=== PATIENT | male | born 1990 | race African-American/Black ===

== ENCOUNTER 2018-02-24 18:17 | Emergency (ER) | payer SELFPAY ==
[2018-02-24 18:23] VITALS: BP 149/81; PULSE 76; RESP 12; TEMP 36.7; O2SAT 96
--- NOTE | 2018-02-24 19:47 | DI.RAD_ITS ---
SYMPTOM/DIAGNOSIS: PAIN RIGHT HAND: Three views. Comparison is made with 12/16/14. No bone or joint abnormality is identified. Soft tissues are grossly unremarkable. Incidental note is made of a bone island in the right third metacarpal. IMPRESSION: No acute abnormality.
--- NOTE | 2018-02-24 19:51 | ED.GENADUL_ITS ---
Discharge Plan Disposition Patient Disposition: HOME Condition: Stable Discharge Details Chief Complaint: Orthopedic Clinical Impression: Injury of flexor tendon of right hand, [place] finger Primary Care Provider: Stefano Herrera ED Provider: Omar Traore Home Meds and New Rx's Prescriptions: No Action ascorbic acid (vitamin C) [Vitamin C] 500 MG tablet 500 mg PO DAILY RF: 0 Discharge Instructions Instructions: Finger Sprain (ED) Additional Instructions: Please keep splint on at all times and follow-up with orthopedist for reassessment. You may take [id number] acetaminophen or Motrin as needed for pain control. Referrals: Waldemar Jacob MD [ [facility] STAFF PHYSICIAN] - (Please call the orthopedic office tomorrow for arrangement of follow-up appointment) Discharge Data Discharge Date/Time-TO BE ENTERED AT DEPARTURE: 02/24/18 20:10 Medical Decision Making Patient presenting to the emergency department for chief complaint of right ring finger pain. Patient states that he was playing flag football approximately 5 weeks ago and pulled it on another person's shorts. Initially he just thought he mildly dislocated his finger but it is continued to hurt and be uncomfortable especially over the last week. Patient denies any new injury or trauma. Physical exam is positive for tenderness to the right ring finger along with the palmar aspect of the metacarpal and absent flexion of the DIP. There is concern for occult fracture or tendon injury specifically jersey finger. Radiological imaging was ordered for rule out of fracture. Patient denies need for any pain medication Initial review of radiological imaging was negative. Given that injury occurred 5 weeks ago and concern for flexor tendon rupture is present I did speak with Dr. Jacob who just stated to have the patient call the office for arrangement of follow-up appointment. Patient was placed in a foam metal splint and finger in slight flexion patient encouraged to keep finger in flexed position and splint on at all times until cleared by orthopedist. After discussion of diagnosis and plan of care patient has no further needs, questions , or concerns and states clear understanding to return to the emergency department for any worsening symptoms. HPI General Mode of arrival: ambulatory . Date/Time Provider Initiated Documentation: 02/24/18 18:49 . Limitations to Documentation: no limitations . Information obtained by: patient and RN notes reviewed . History of Present Illness described as moderate, with intensity rated at 7. Quality is described as aching, and is localized to the right and upper extremity. Patient started experiencing this week(s) (5) and it has been intermittent. No relieving factors improve symptom(s), No exacerbating factors reported and Movement worsens symptoms . Patient notes no other symptoms.. Patient did receive the following treatments prior to arrival, none Related Data Home Medications Medication Instructions Recorded Confirmed ascorbic acid (vitamin C) [Vitamin 500 mg PO DAILY 05/13/15 02/24/18 C] Allergies Allergy/AdvReac Type Severity Reaction Status Date / Time No Known Allergies Allergy Unverified 02/24/18 18:29 General Stated Complaint: Orthopedic CHRIS: 4 Review of Systems Constitutional Denies frequent falls Cardiovascular Denies syncope Musculoskeletal Reports as per HPI, Denies numbness and Denies tingling Neurologic Denies syncope, Denies frequent falls, Denies numbness and Denies tingling PFSH Social History Smoking/Tobacco Use Status: Former Tobacco Use Exam Const General: cooperative, healthy appearing and no acute distress Orientation: alert, awake and oriented x3 Resp Effort & Inspection: normal respiratory effort and able to speak in complete sentences Cardio Rate: regular rate Rhythm: regular rhythm Extrem General: normal exam except as noted Right upper extremity: hand Details: normal capillary refill, neuromotor exam normal, neurosensory exam normal, tendon exam abnormal Location: function absent (Movement of the right ring finger distal flexion) and tenderness over the sheath (Right ring finger), tenderness Location: of the palm and abnormal ROM of finger Details: unable to flex Location: of the 4th digit Course Vital Signs Temperature 36.7 C 02/24/18 18:23 Pulse 76 02/24/18 18:23 Respiratory Rate 12 02/24/18 18:23 Blood Pressure 149/81 H 02/24/18 18:23 Pulse Oximetry 96 02/24/18 18:23 Temperature 36.7 C 02/24/18 18:23 Temperature Source Skin 02/24/18 18:23 Pulse 76 02/24/18 18:23 Respiratory Rate 12 02/24/18 18:23 Respiratory Effort 02/24/18 18:29 Blood Pressure 149/81 H 02/24/18 18:23 Blood Pressure Position Sitting 02/24/18 18:23 Pulse Oximetry 96 02/24/18 18:23 Oxygen Delivery Method Room Air 02/24/18 18:23 Oxygen Flow Rate 0 02/24/18 18:23 Pain Level 6 02/24/18 18:23
--- NOTE | 2018-02-24 20:21 | DI.VRAD_ITS ---
EXAM: XR Right Hand Complete, 3 or more Views EXAM DATE/TIME: 02/24/2018 7:26 PM CLINICAL HISTORY: 27 years old, male; Pain; Finger(s); Right; Patient HX: 4th metacarpal pain TECHNIQUE: XR Right hand 3 or more views. COMPARISON: CR RIGHT WRIST COMPLETE 12/16/2014 10:51 AM FINDINGS: Bones/joints: A bone island is seen in the third metacarpal head. No fracture or subluxation. Soft tissues: Normal. IMPRESSION: No acute osseous findings. Dictated and Authenticated by: Zeferino Elaine MD. Ordering:BRUNO RAMESH MD
== END 2018-02-24 20:10 | disposition home or self-care (01) ==
PROVIDERS: Emergency Provider Nurse Practitioner Family; PCP Family Medicine
DX: S66.114A Strain of flexor muscle, fascia and tendon of right ring finger at wrist and hand level, initial encounter (principal); S63.634A Sprain of interphalangeal joint of right ring finger, initial encounter; X50.0XXA Overexertion from strenuous movement or load, initial encounter; Y93.62 Activity, american flag or touch football
CPT/HCPCS: 29130; 99283; 73130

== ENCOUNTER 2018-05-22 07:45 | Outpatient (CLI) | payer OTHER, SELFPAY ==
--- NOTE | 2018-05-22 13:18 | W.PREOPHP ---
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 Details of surgery were discussed with patient as well as risks and pertinent anatomy. All questions were answered. Qualifiers: Encounter type: subsequent encounter Qualified Code(s): S66.811D - Strain of other specified muscles, fascia and tendons at wrist and hand level, right hand, subsequent encounter History of Present Illness Chief Complaint: Right ring finger injury Narrative: Cindy is a 27-year-old male who comes in complaining of an injury that he sustained to his right ring finger while he was playing football back in December. He said he was playing flag football when he was reaching for a flag he got his right ring finger caught in the opponents pocket causing a popping sensation in his right ring finger. He says that the popping sensation also was associated with pain into his palm and into his wrist, and some tingling in his right ring finger. Tingling ended up subsiding, however he noticed he was unable to flex his finger fully. He went to the emergency room in February, and that also when he saw Dr. Jacob, and he was diagnosed with a ruptured FDP tendon of the right ring finger. X-rays taken were unremarkable, and showed no acute bony abnormalities. 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 Dr. Jacob suggests surgical intervention with repair of the FDP tendon, and the patient is anxious to proceed. Pertinent Surgical Information Patient denies history of hypertension, CVA, [place], angina, asthma, COPD, renal or liver disorders, hepatitis, bleeding disorders, diabetes, immune or thyroid disorders. No complications from anesthesia. Review of Systems Constitutional Denies fever(s) ENT Denies dizziness and Denies sore throat Cardiovascular Denies chest pain, Denies palpitations and Denies dyspnea Respiratory Denies dyspnea Gastrointestinal Denies abdominal pain, Denies melena, Denies hematochezia, Denies diarrhea, Denies nausea and Denies vomiting Genitourinary Denies hematuria and Denies dysuria Neurologic Denies dizziness Endocrine Denies palpitations [facility] Surgical History History of torsion of testis (Chronic) Social History Smoking/Tobacco Use Status: Current-Occasional Meds Home Medications Medication Instructions Recorded Confirmed Type ascorbic [id number] 1 ea PO PRN PRN 05/22/18 05/22/18 History [Emergen-C] Allergies Allergy/AdvReac Type Severity Reaction Status Date / Time No Known Allergies Allergy Verified 03/05/18 10:46 Exam [facility] Head: normocephalic and atraumatic General nose exam: no nasal discharge Throat: uvula midline and no uvular edema Other: soft palate rises symmetrically, no erythema Eyes Conjunctivae: conjunctivae normal Sclera: sclerae normal Pupils: PERRL Resp Effort & Inspection: normal respiratory effort Auscultation: clear to auscultation bilaterally and no wheezes Cardio Rate: regular rate Rhythm: regular rhythm Heart Sounds: S1 normal, S2 normal and no murmurs
--- NOTE | 2018-05-22 13:27 | HPE_ITS ---
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 Details of surgery were discussed with patient as well as risks and pertinent anatomy. All questions were answered. Qualifiers: Encounter type: subsequent encounter Qualified Code(s): S66.811D - Strain of other specified muscles, fascia and tendons at wrist and hand level, right hand, subsequent encounter History of Present Illness Chief Complaint: Right ring finger injury Narrative: Cindy is a 27-year-old male who comes in complaining of an injury that he sustained to his right ring finger while he was playing football back in December. He said he was playing flag football when he was reaching for a flag he got his right ring finger caught in the opponents pocket causing a popping sensation in his right ring finger. He says that the popping sensation also was associated with pain into his palm and into his wrist, and some tingling in his right ring finger. Tingling ended up subsiding, however he noticed he was unable to flex his finger fully. He went to the emergency room in February, and that also when he saw Dr. Jacob, and he was diagnosed with a ruptured FDP tendon of the right ring finger. X-rays taken were unremarkable, and showed no acute bony abnormalities. 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 Dr. Jacob suggests surgical intervention with repair of the FDP tendon, and the patient is anxious to proceed. Pertinent Surgical Information Patient denies history of hypertension, CVA, [place], angina, asthma, COPD, renal or liver disorders, hepatitis, bleeding disorders, diabetes, immune or thyroid disorders. No complications from anesthesia. Review of Systems Constitutional Denies fever(s) ENT Denies dizziness and Denies sore throat Cardiovascular Denies chest pain, Denies palpitations and Denies dyspnea Respiratory Denies dyspnea Gastrointestinal Denies abdominal pain, Denies melena, Denies hematochezia, Denies diarrhea, Denies nausea and Denies vomiting Genitourinary Denies hematuria and Denies dysuria Neurologic Denies dizziness Endocrine Denies palpitations [facility] Surgical History History of torsion of testis (Chronic) Social History Smoking/Tobacco Use Status: Current-Occasional Meds Home Medications Medication Instructions Recorded Confirmed Type ascorbic [id number] 1 ea PO PRN PRN 05/22/18 05/22/18 History [Emergen-C] Allergies Allergy/AdvReac Type Severity Reaction Status Date / Time No Known Allergies Allergy Verified 03/05/18 10:46 Exam [facility] Head: normocephalic and atraumatic General nose exam: no nasal discharge Throat: uvula midline and no uvular edema Other: soft palate rises symmetrically, no erythema Eyes Conjunctivae: conjunctivae normal Sclera: sclerae normal Pupils: PERRL Resp Effort & Inspection: normal respiratory effort Auscultation: clear to auscultation bilaterally and no wheezes Cardio Rate: regular rate Rhythm: regular rhythm Heart Sounds: S1 normal, S2 normal and no murmurs
== END 2018-05-22 08:05 ==
PROVIDERS: PCP Family Medicine; Visit Provider Orthopaedic Surgery
DX: S66.811A Strain of other specified muscles, fascia and tendons at wrist and hand level, right hand, initial encounter (principal); Z01.818 Encounter for other preprocedural examination
CPT/HCPCS: NC

== ENCOUNTER 2018-05-26 09:50 | Day surgery (SDC) | payer OTHER, MEDICAID, SELFPAY ==
[2018-05-26] VITALS (7 sets, daily range): BP systolic 143–183; BP diastolic 77–113; PULSE 62–86; RESP 11–19; TEMP 35.7–36.5; O2SAT 97–100
[2018-05-26] MEDS: Lactated Ringers 1,000 ML 80 ML IV (10:51)
--- NOTE | 2018-05-26 13:14 | PDOC.DSDIS_ITS ---
Discharge Plan Disposition Patient Disposition: HOME Condition: Good Discharge Details Reason For Visit: rupture flexor tendon R ring finger Attending Provider: Waldemar Jacob Primary Care Provider: Stefano Herrera Home Meds and New Rx's Prescriptions: New hydrocodone-acetaminophen 5-325 mg tablet 1 tab PO Q6H PRN (Reason: pain) Qty: 10 RF: 0 Continued Emergen-C 1,000 mg Powder Effervescent In Packet 1 ea PO PRN PRNRF: 0 Discharge Instructions Additional Instructions: Elevate R hand above heart level as much as possible for next 48 hours. Keep dressings and splint dry and intact until return. Return to 's office in one week for dressing change and wound check. Take hydrocodone, if needed, for breakthru pain. Otherwise take tylenol or ibuprofen for mild pain. Referrals: Waldemar Jacob MD [ [facility] STAFF PHYSICIAN] - (f/u in one week.) Equipment/Supplies: Splint Activity:: Activity as Tolerated Remove Dressings/Wound Care:: Do Not Remove Shower/Bathe:: Cover Diet:: As Tolerated Discharge Orders Discharge Orders: Discharge Order (Routine); Ordered 05/26/18 Ordered By: Waldemar Jacob DS: Diagnosis Discharge Diagnosis (1) Rupture of flexor tendon of right hand: Status: Chronic
[2018-05-26] MEDS: HYDROmorphone 2 MG/ML VIAL IVP (13:58)
[2018-05-26] MEDS: HYDROcodone 5/Acetaminophen 325 TAB PO (14:50)
--- NOTE | 2018-05-26 16:12 | ROE_ITS ---
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 PROCEDURE: Exploration of flexor tendons right ring finger. Application of dorsal splint to the right wrist. ANESTHESIA: General. SURGEON: Waldemar Jacob M.D. MECHANIC MARINE ENGINE: Stevenson Kiser FINDINGS: Patient had a flexor digitorum profundus that was retracted in the palm to the level of the distal edge of the volar carpal ligament. This tendon could not be mobilized sufficiently to any kind of repair. I simply sutured the profundus to the sublimis tendons of the ring finger to help with strength. I also manipulated the PIP joint of the ring finger to gain full passive extension. INDICATIONS: This is a 27-year-old white male who was playing football with friends in late December when he felt a pop in his right ring finger. He said he did not experience much pain at that time. He did not seek medical attention until six weeks had elapsed. At that time he came to the Emergency Room because of an inability to really extend his DIP joint very well and he had developed a flexion contracture at the PIP joint of the ring finger. He was then referred to me for evaluation. I made the diagnosis of a rupture of the flexor digitorum profundus tendon from its attachment to the base of the distal phalanx of the ring finger. At that time I explained to the patient that the tendon had most likely retracted a distance proximally and may or may not be mobilized at that time in order to provide a sufficient repair. The patient was lost to follow-up and didn't return until April for evaluation again. I explained to the patient at that time that I was not sure that the tendon could be mobilized sufficiently for repair due to the time that had elapsed since the injury. I nevertheless felt that exploration should be considered so that if the tendon was not retracted into the palm, then it could be mobilized enough for repair. The patient wished to have me to proceed to attempt at repair, if possible. The risks and complications of the procedure were explained to the patient in detail preoperatively. PROCEDURE: The patient was taken to the Operating Room on 05/26/18. He was placed supine on the operating table and a general anesthetic was administered. The right hand was then prepped and draped free in the usual sterile fashion. Under proximal tourniquet control and using the lead hand splint, a Bertin-type incision was made beginning of the palmar aspect of the distal phalanx of the ring finger and carried in a zigzag fashion across the proximal and middle flexion creases. I opened the flexor sheath, did not find the profundus tendon distal to the sublimis tendon insertion. I then carried the Bertin incision further distally and I was not able to find the flexor profundus between the middle and proximal skin creases of the finger. I then carried the Bertin incision zigzag fashion distally to the distal edge of the volar carpal ligament. The proximal kapil of the flexor sheath was released. There was only one tendon present and that was the sublimis. I was able to locate the stump of the profundus tendon at the distal edge of the volar carpal ligament. There was some of the tissue that was rolled up into a small ball or stump of fibrous tissue. I attempted to mobilize the profundus tendon and could only gain enough travel maybe to get to the distal flexion crease of the palm. It was obvious that I could not gain enough travel or length to pass the tendon through the sheath back to its insertion. I did not feel that I should go further proximally in an attempt to mobilize the tendon. This would need a tendon graft to restore DIP flexion. I am not sure this would be useful to this gentleman at this time; certainly not worth all the effort and time to recover. I therefore sutured the stump of the profundus tendon to the flexor digitorum sublimis tendon to the ring finger for added motor strength. It was sutured with interrupted #3-0 and #4-0 Nylon sutures. The wound margins were infiltrated with 0.5% Marcaine with an epinephrine solution and infiltrated around the digital nerves to the ring finger at the level of the metacarpal neck for a digital block to the finger. The skin edges were then loosely approximated with interrupted #3-0 and #4-0 Nylon sutures. The wound was dressed with Xeroform gauze, sterile gauze 4x4's, fluff gauze 4x4's between the fingers, wrapped with a Kerlix bandage and wrapped with an Alon bandage. Then I applied a dorsal fiberglass splint with the wrist in 20 degrees of flexion; the little, ring and middle fingers flexed at the MP joint to take the stress off the flexor tendon repair. The splint was held with a 3-inch Alon bandage. The tourniquet was released at this time. There was no breakthrough bleeding to the dressings. The patient's anesthesia was reversed without complications. He was discharged to the Recovery Room in good condition. The patient was later discharged home from the Day Surgery Unit when fully recovered from his general anesthesia. He was given instructions to keep his dressings and splint dry and intact until he returns in a week to my office for dressing change and wound check. He will try to elevate his right hand above heart level as much as possible for the next 48 hours to prevent swelling. 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 He was given a prescription for breakthrough pain of Hydrocodone with APAP 5/325 one tablet every six hours, if needed, for pain that is not relieved by Tylenol or ibuprofen.
== END 2018-05-26 15:40 | disposition home or self-care (01) ==
PROVIDERS: PCP Family Medicine; Visit Provider Orthopaedic Surgery
PROC: (CPT 26370; principal; 2018-05-26 10:15)
DX: S66.115A Strain of flexor muscle, fascia and tendon of left ring finger at wrist and hand level, initial encounter (principal); X50.0XXA Overexertion from strenuous movement or load, initial encounter; Y93.61 Activity, american tackle football
CPT/HCPCS: 26370; 29125; J0690; J1885; J2250; J2405; J3010

== ENCOUNTER 2020-01-21 10:04 | Outpatient (CLI) | payer OTHER, SELFPAY ==
--- NOTE | 2020-01-21 14:45 | DI.RAD_ITS ---
EXAM: XR WRIST LT COMP NAVICULAR CLINICAL HISTORY: S/P trauma. ? fracture. Painful ROM, WRIST PAIN ACUTE, M25.539. TECHNIQUE: 2D digital imaging was performed. COMPARISON: No exams were available for comparison FINDINGS: BONES: No acute fracture is present. No bony destructive lesion is seen. JOINTS: The carpal bones are normally aligned. SOFT TISSUE: Normal. IMPRESSION: Unremarkable radiographs of the left wrist. DATA REPOSITORY: RADIATION DOSE DELIVERED:
== END 2020-01-21 10:24 ==
PROVIDERS: Visit Provider Nurse Practitioner Family
DX: M25.532 Pain in left wrist (principal)
CPT/HCPCS: 73110

== ENCOUNTER 2021-06-16 03:43 | Outpatient (CLI) | payer OTHER, SELFPAY | END 2021-06-16 03:44 | disposition home or self-care (01) | LOC: LBO 03:43 | PROVIDERS: PCP Family Medicine; Visit Provider Family Medicine ==

== ENCOUNTER 2021-06-30 03:54 | Outpatient (CLI) | payer OTHER, SELFPAY | END 2021-06-30 03:55 | disposition home or self-care (01) | LOC: LBO 03:54 | PROVIDERS: PCP Family Medicine; Visit Provider Family Medicine ==

== ENCOUNTER 2021-07-10 02:31 | Outpatient (CLI) | payer OTHER, SELFPAY | END 2021-07-10 02:32 | disposition home or self-care (01) | LOC: LBO 02:31 | PROVIDERS: PCP Family Medicine; Visit Provider Family Medicine ==

== ENCOUNTER 2022-07-06 14:21 | Outpatient (CLI) | payer BC, SELFPAY ==
--- NOTE | 2022-07-06 14:15 | RT.EKG_ITS ---
APPROVED REPORT Exam: Resting ECG Reason for Exam: medication monitoring Patient Location: O HR:75 bpm ECG Measurements Heart Rate 75 AXIS MT 198 P 43 QRSd 90 QRS 32 QT 366 T 4 QTc 409 Conclusion Sinus rhythm...normal P axis, V-rate 50- 99 ST elev, probable normal early repol pattern...ST elevation, age<55 Normal Electrocardiogram
== END 2022-07-06 14:22 | disposition home or self-care (01) ==
LOC: DI.CM 14:22
PROVIDERS: PCP Nurse Practitioner Family; Visit Provider Nurse Practitioner Family
DX: Z51.81 Encounter for therapeutic drug level monitoring (principal)
CPT/HCPCS: 93010

== ENCOUNTER 2022-09-08 14:13 | Outpatient (CLI) | payer BC, SELFPAY ==
--- NOTE | 2022-09-08 | DI.RAD_ITS ---
Exam(s) XR FOOT LT COMPLETE EXAM: XR FOOT LT COMPLETE CLINICAL HISTORY: PAIN IN LEFT FOOT. TECHNIQUE: 2D digital imaging was performed. Three views. COMPARISON: No exams were available for comparison FINDINGS: BONES: No acute fracture is present. No bony destructive lesion is seen. JOINTS: No dislocation present. SOFT TISSUE: Normal. IMPRESSION: Unremarkable radiographs of the left foot. DATA REPOSITORY: RADIATION DOSE DELIVERED:
--- NOTE | 2022-09-08 14:50 | DI.VRAD_ITS ---
PROCEDURE INFORMATION: Exam: XR Left Foot Exam date and time: 09/08/2022 2:22 PM Age: 31 years old Clinical indication: Foot; Left; Patient HX: Pain at base of2, 3 and 4 toes TECHNIQUE: Imaging protocol: Radiologic exam of the left foot. Views: 3 or more views. COMPARISON: No relevant prior studies available. FINDINGS: Bones/joints: Normal. Soft tissues: Normal. IMPRESSION: No acute findings. Dictated and Authenticated by: Shane Aquino MD. Ordering:VIRGINIA Healy MD
== END 2022-09-08 14:33 ==
PROVIDERS: PCP Nurse Practitioner Family; Visit Provider Nurse Practitioner Family
DX: M79.672 Pain in left foot (principal)
CPT/HCPCS: 73630

== ENCOUNTER 2022-11-09 15:02 | Outpatient (REF) | payer OTHER, BC, SELFPAY ==
[2022-11-09 12:17] LABS: ESR 9 mm/hr (0-15)
[2022-11-09 12:27] LABS: Anion Gap 11.2 mmol/L (3-11); BUN 11 mg/dL (7-18); CO2 24.8 mmol/L (21.0-32.0); CREATININE 1.1 mg/dL (0.70-1.30); Calcium 8.9 mg/dL (8.5-10.1); Chloride 104 mmol/L (98-107); Estimated GFR 92.61 (mL/min/1.73m2); Glucose 100 mg/dL (74-106); Potassium 4.3 mmol/L (3.5-5.1); Sodium 140 mmol/L (136-145); Uric Acid 5.2 mg/dL (3.5-7.2)
== END 2022-11-09 15:03 | disposition home or self-care (01) ==
LOC: LBN 15:02
PROVIDERS: PCP Nurse Practitioner Family; Visit Provider Nurse Practitioner Family
DX: M79.644 Pain in right finger(s) (principal); M79.675 Pain in left toe(s); M76.61 Achilles tendinitis, right leg; M79.645 Pain in left finger(s)
CPT/HCPCS: 80048; 85652; 84550

== ENCOUNTER 2023-04-23 15:35 | Outpatient (REF) | payer BC, SELFPAY ==
[2023-04-23 14:59] LABS: ESR 8 mm/hr (0-15)
[2023-04-23 15:01] LABS: Abs Immature Grans 0.02 10^3/uL (0.0-0.06); Absolute Basophil Count 0.06 10^3/uL (0.0-0.2); Absolute Eosinophil Count 0.16 10^3/uL (0.0-0.7); Absolute Lymphocyte Count 2.68 10^3/uL (1.2-3.4); Absolute Monocyte Count 0.37 10^3/uL (0.1-0.8); Absolute Neutrophil Count 1.92 10^3/uL (1.2-6.7); Basophils % 1.2; Eosinophils % 3.1; HCT 45.2 % (40.0-50.0); HGB 15.6 g/dL (13.5-17.5); Immature Grans % 0.4; Lymphocytes % 51.4; MCH 30.4 pg (27.0-33.0); MCHC 34.5 % (32.0-36.0); MCV 88 fL (80-95); MPV 10.1 fL (8.0-11.0); Monocytes % 7.1; Neutrophils % 36.8; Platelet Count 247 10^3/uL (130-400); RBC 5.13 10^6/uL (4.36-5.78); RDW 11.5 % (11.8-14.1); RDW-SD 37.3 fL; WBC 5.21 10^3/uL (4.4-10.8)
[2023-04-23 15:11] LABS: ALT 41 U/L (16-63); AST 27 U/L (15-37); Albumin 3.8 g/dL (3.4-5.0); Alkaline Phosphatase 69 U/L (46-116); Anion Gap 6.1 mmol/L (3-11); BUN 9 mg/dL (7-18); Bilirubin, Total 0.4 mg/dL (0.2-1.0); CO2 27.9 mmol/L (21.0-32.0); CREATININE 1.1 mg/dL (0.70-1.30); Calcium 9.3 mg/dL (8.5-10.1); Chloride 103 mmol/L (98-107); Estimated GFR 92.61 (mL/min/1.73m2); Glucose 97 mg/dL (74-106); Potassium 4.5 mmol/L (3.5-5.1); Sodium 137 mmol/L (136-145); Total Protein 7.4 g/dL (6.4-8.2)
[2023-04-24 10:37] LABS: Lyme Ab w Rflx to Lyme Confirm Negative (Negative)
[2023-04-25 15:13] LABS: Anaplasma phagocytophilum Negative (Negative); B. miyamotoi PCR Negative (Negative); Babesia divergens/MO-1 Negative (Negative); Babesia duncani Negative (Negative); Babesia microti Negative (Negative); Ehrlichia chaffeensis Negative (Negative); Ehrlichia ewingii/canis Negative (Negative); Ehrlichia muris eauclairensis Negative (Negative)
== END 2023-04-23 15:36 | disposition home or self-care (01) ==
LOC: LBN 15:35
PROVIDERS: PCP Nurse Practitioner Family; Visit Provider Physician Assistant
DX: R51.9 Headache, unspecified (principal)
CPT/HCPCS: 80053; 85652; 87798; 85025; 86618

== ENCOUNTER → 2023-05-20 03:00 | Outpatient (CLI) | payer OTHER, SELFPAY ==
--- NOTE | 2023-05-20 07:00 | DI.MRI_ITS ---
Exam(s) MR BRAIN WO EXAM: MR BRAIN WO CLINICAL HISTORY: daily headache,new,G44.52 TECHNIQUE: Multiplanar multisequence MRI of the brain was performed. COMPARISON: No exams were available for comparison FINDINGS: VENTRICLES AND EXTRA AXIAL SPACES: Normal in size and morphology for the patient's age. MIDLINE SHIFT: None. CEREBRAL PARENCHYMA: No focus of restricted diffusion to suggest acute infarct. No space-occupying le tomeka identified. No abnormal high signal lesions in the white matter.. HEMORRHAGE: None. BRAINSTEM/CEREBELLUM: Normal. VISUALIZED PARANASAL SINUSES/MASTOIDS:Clear. Vasculature: Normal flow void. PITUITARY GLAND: Unremarkable. ORBITS: Unremarkable. IMPRESSION: Unremarkable MRI of the brain. DATA REPOSITORY:
== END ==
PROVIDERS: PCP Nurse Practitioner Family; Visit Provider Nurse Practitioner Family
DX: G44.52 New daily persistent headache (NDPH) (principal)
CPT/HCPCS: 70551

== ENCOUNTER → 2023-06-08 13:11 | Outpatient (CLI) | payer OTHER, SELFPAY ==
--- NOTE | 2023-06-08 13:47 | DI.RAD_ITS ---
Exam(s) XR FINGER LT MIDDLE EXAM: XR FINGER LT MIDDLE CLINICAL HISTORY: ICD 10 M79.645 PAIN IN LEFT FINGERS. TECHNIQUE: 2D digital imaging was performed. Three views. COMPARISON: None. FINDINGS: BONES: No acute fracture is present. No bony destructive lesion is seen. JOINTS: No dislocation present. Mild flexion deformity at the DIP joint of the middle finger. SOFT TISSUE: Mild soft tissue swelling. No foreign body. IMPRESSION: No evidence of acute fracture. Mild flexion at the DIP joint. DATA REPOSITORY: RADIATION DOSE DELIVERED:
--- NOTE | 2023-06-08 14:07 | DI.VRAD_ITS ---
PROCEDURE INFORMATION: Exam: XR Left Finger(s) Exam date and time: 06/08/2023 1:42 PM Age: 32 years old Clinical indication: Finger(s); Patient HX: Pain in left finger TECHNIQUE: Imaging protocol: Radiologic exam of the left fingers. Views: Minimum 2 views. COMPARISON: CR XR WRIST LT COMP NAVICULAR 01/21/2020 3:07 PM FINDINGS: Bones/joints: No fracture or dislocation. Joint spaces are unremarkable. Soft tissues: No significant abnormality IMPRESSION: No acute findings. Dictated and Authenticated by: Shane Aquino MD. Ordering:KAREN GEE MD
== END ==
PROVIDERS: PCP Nurse Practitioner Family; Visit Provider Nurse Practitioner Family
DX: M79.645 Pain in left finger(s) (principal)
CPT/HCPCS: 73140

== ENCOUNTER 2025-02-12 04:54 | Outpatient (CLI) | payer OTHER, SELFPAY ==
--- NOTE | 2025-02-12 07:00 | DI.RAD_ITS ---
Exam(s) XR KNEE RT 3V AP,LAT,SUSAN EXAM: XR KNEE RT 3V AP,LAT,SUSAN CLINICAL HISTORY: worsening pain behind knee cap,m25.561. TECHNIQUE: 2D digital imaging was performed. Three views. COMPARISON: No exams were available for comparison FINDINGS: BONES: No acute fracture is present. No bony destructive lesion is seen. JOINTS: The knee is normally aligned. The joint spaces are maintained. No joint effusion is seen. SOFT TISSUE: Normal. IMPRESSION: Unremarkable radiographs of the right knee. DATA REPOSITORY: RADIATION DOSE DELIVERED:
== END 2025-02-12 05:14 ==
LOC: DI 04:54
PROVIDERS: PCP Nurse Practitioner Family; Visit Provider Nurse Practitioner Family
DX: M25.561 Pain in right knee (principal)
CPT/HCPCS: 73562

== ENCOUNTER → 2025-03-20 13:52 | Outpatient (CLI) | payer OTHER, SELFPAY ==
--- NOTE | 2025-03-20 14:15 | DI.RAD_ITS ---
Exam(s) XR HAND LT COMPLETE EXAM: XR HAND LT COMPLETE CLINICAL HISTORY: ICD-10: S63.602A Unspecified sprain of left thumb, initial encounter. TECHNIQUE: 2D digital imaging was performed. Three views. COMPARISON: CR,XR XR FINGER LT MIDDLE from 06/08/2023 FINDINGS: BONES: No acute fracture is present. No bony destructive lesion is seen. JOINTS: No dislocation present. SOFT TISSUE: Normal. IMPRESSION: Unremarkable radiographs of the left hand. The preliminary [facility] report was reviewed. DATA REPOSITORY: RADIATION DOSE DELIVERED:
--- NOTE | 2025-03-20 14:15 | DI.[facility]_ITS ---
PROCEDURE INFORMATION: Exam: XR Left Hand Exam date and time: 03/20/2025 2:07 PM Age: 34 years old Clinical indication: Pain; Finger(s); Left; Additional info: Unspecified sprain of left thumb, initial encounter TECHNIQUE: Imaging protocol: Radiologic exam of the left hand. Views: 3 or more views. COMPARISON: CR XR FINGER LT MIDDLE 01/29/2024 13:42 FINDINGS: Bones/joints: Unremarkable. Soft tissues: Unremarkable. IMPRESSION: No evidence for acute bony injury. If clinical symptoms persist recommend followup film in 7-10 days. Dictated and Authenticated by: Светлана Crow MD. Orderin Enio Browning MD
== END ==
PROVIDERS: PCP Nurse Practitioner Family; Visit Provider Physician Assistant Medical
DX: S63.602A Unspecified sprain of left thumb, initial encounter (principal)
CPT/HCPCS: 73130